=== PATIENT | male | born 1990 | race American Indian/Alaskan Native ===

== ENCOUNTER 2017-02-13 08:55 | Emergency (ER) | payer SELFPAY ==
[2017-02-13 08:57] VITALS: BMI 26.4
[2017-02-13 09:08] VITALS: BP 122/71; PULSE 53; RESP 18; TEMP 98.2; O2SAT 99
--- NOTE | 2017-02-13 09:21 | ED PDOC ---
Arrival/HPI - General Chief Complaint: ENT Problem Time Seen by Provider: 02/13/17 09:07 Historian: Patient - History of Present Illness Narrative History of Present Illness (Text): 02/13/17 10:04 26yo male with no PMHx present with painful swelling of his lower frontal gum x 2days. Notes that he did not take any medication for the pain. Denies fever, chills, drooling, toothache, any other complaint. Past Medical History - Provider Review Nursing Documentation Reviewed: Yes - Infectious Disease Hx of Infectious Diseases: None - Tetanus Immunization Tetanus Immunization: Unknown - Past Medical History Past Medical History: No Previous - Psychiatric Hx Substance Use: No - Past Surgical History Past Surgical History: No Previous - Anesthesia Hx Anesthesia: No - Suicidal Assessment Feels Threatened In Home Enviroment: No Family/Social History - Physician Review Nursing Documentation Reviewed: Yes Family/Social History: Unknown Family HX Smoking Status: Light Smoker < 10 Cigarettes Daily Hx Alcohol Use: Yes Hx Substance Use: No Allergies/Home Meds Allergies/Adverse Reactions: Allergies No Known Allergies Allergy (Verified 02/13/17 09:07) Review of Systems - Physician Review All systems were reviewed & negative as marked: Yes - Review of Systems Constitutional: Normal Eyes: Normal ENT: Other (Lower gum swelling) Respiratory: Normal Cardiovascular: Normal Gastrointestinal: Normal Genitourinary Male: Normal Musculoskeletal: Normal Skin: Normal Neurological: Normal Endocrine: Normal Hemo/Lymphatic: Normal Psychiatric: Normal Physical Exam Vital Signs Reviewed: Yes Vital Signs Temp Pulse Resp BP Pulse Ox 02/13/17 09:03 98.2 F 53 L 18 122/71 99 Temperature: Afebrile Blood Pressure: Normal Pulse: Regular Respiratory Rate: Normal Appearance: Positive for: Well-Appearing, Non-Toxic, Comfortable Pain Distress: None Mental Status: Positive for: Alert and Oriented X 3 - Systems Exam Head: Present: Atraumatic, Normocephalic Pupils: Present: PERRL Extroacular Muscles: Present: EOMI Conjunctiva: Present: Normal Mouth: Present: Moist Mucous Membranes, Other (Mild swelling of lower gum swelling noted at the base on the lateral incisor) Neck: Present: Normal Range of Motion Respiratory/Chest: Present: Clear to Auscultation, Good Air Exchange. No: Respiratory Distress, Accessory Muscle Use Cardiovascular: Present: Regular Rate and Rhythm, Normal S1, S2. No: Murmurs Abdomen: Present: Normal Bowel Sounds. No: Tenderness, Distention, Peritoneal Signs Back: Present: Normal Inspection Upper Extremity: Present: Normal Inspection. No: Cyanosis, Edema Lower Extremity: Present: Normal Inspection. No: Edema Neurological: Present: GCS=15, CN II-XII Intact, Speech Normal Skin: Present: Warm, Dry, Normal Color. No: Rashes Psychiatric: Present: Alert, Oriented x 3, Normal Insight, Normal Concentration Medical Decision Making ED Course and Treatment: 02/13/17 10:06 PT afebrile and hemodynamically stable. Placed on Amoxicillin 500mg. Referred to a Dentist. TRT ED for any new or worsening symptoms. - Medication Orders Current Medication Orders: Discontinued Medications Amoxicillin (Amoxil 500 Mg Cap) 500 mg PO STAT STA PRN Reason: Protocol Stop: 02/13/17 09:18 Last Admin: 02/13/17 09:35 Dose: 500 mg Tramadol HCl (Ultram) 50 mg PO STAT STA Stop: 02/13/17 09:19 Last Admin: 02/13/17 09:35 Dose: 50 mg Disposition/Present on Arrival - Present on Arrival Any Indicators Present on Arrival: No History of DVT/PE: No History of Uncontrolled Diabetes: No Urinary Catheter: No History of Decub. Ulcer: No History Surgical Site Infection Following: None - Disposition Have Diagnosis and Disposition been Completed?: Yes Diagnosis: Gingivitis Disposition: HOME/ ROUTINE Disposition Time: 09:25 Patient Plan: Discharge Condition: STABLE Discharge Instructions (ExitCare): Gingivitis (ED) Additional Instructions: Follow up with a Dentist Return to ED for any new or worsening symptoms Prescriptions: Amoxicillin 500 mg PO TID #21 tab Ibuprofen [Motrin Tab] 600 mg PO Q6 #20 tab Referrals: Margarito Ward DMD [Non-Staff] - Follow up with primary
== END 2017-02-13 09:42 | disposition home or self-care (01) ==
LOC: ED 08:55
DX: K05.10 Chronic gingivitis, plaque induced (principal); Z72.0 Tobacco use